=== PATIENT | male | born 1950 | race Caucasian/White ===

== ENCOUNTER 2017-01-27 11:23 | Emergency (ER) | payer OTHER, MEDICARE ==
[~2017-01-27] VITALS: Ht 182.9 cm; Wt 94.1 kg
[~2017-01-27 11:23] MED LIST: AMLO10TA3 PO; ASPI-628 PO; CHOL200020 PO; DOXY100C43 PO; ENAL10TA PO; GABA600T2 PO; HYDR25TA4 PO; METO25TA6 PO; OMEG300C3 PO; OMEP20TA86 PO
[2017-01-27 11:26] VITALS: BP 168/89; PULSE 71; RESP 18; O2SAT 97
--- NOTE | 2017-01-27 11:31 | ED.REPORT ---
HPI-Dyspnea / Wheezing Date of Service Jan 27, 2017 ED Provider: Patient is a 66-year-old man with congestive heart failure, obstructive sleep apnea, and previous PCI with stent placement in 1999. He presents to the emergency department with intermittent shortness of breath for the last 5 days. The worst episode occurred last night it was essentially constant for 5 hours. The 2 major episodes have occurred while he has been trying to sleep. He drinks griffin tea to help dilate his vessels and waits until it eventually goes away. He uses the CPAP nasal pillows and has difficulty with feeling like he is not getting enough air every time he puts his CPAP on. He is having episodes of shortness of breath independent of using his CPAP as well. Sometimes his symptoms improved with laying down. He sometimes but not always has shortness of breath with exertion. He states that he feels he has chest restriction which he relates to pain. His symptoms initially started on Wednesday evening, he had been helping his son move furniture in a [place] environment. She was coughing and had a runny nose at that time. She does not have a history of seasonal allergies. He is not experiencing any cough, fever, chills headache, vision changes, nausea, vomiting, abdominal pain, melena, hematochezia, edema, or focal weakness. Nursing Notes Stated Complaint: SOB Chief Complaint: Respiratory Complaints Allergies: Coded Allergies: No Known Drug Allergies (Verified Allergy, Unknown, 01/27/17) Scheduled Albuterol HFA (Proair HFA) 8.5 Gm Hfa.aer.ad 2 PUFFS INHALATION Q4H Amlodipine (Amlodipine) 10 Mg Tablet 10 MG PO DAILY Aspirin (Aspir 81) 81 Mg Tablet. 81 MG PO DAILY Cholecalciferol (Vitamin D3) (Vitamin D-3) 2,000 Unit Capsule 1,000 UNIT PO DAILY Doxycycline Monohyd (Doxycycline Monohyd) 100 Mg Capsule 100 MG PO BID Enalapril Maleate (Enalapril Maleate) 10 Mg Tablet 10 MG PO DAILY Gabapentin (Gabapentin) 600 Mg Tablet 600 MG PO BID Hydrochlorothiazide (Hydrochlorothiazide) 25 Mg Tablet 25 MG PO DAILY Metoprolol Tartrate (Metoprolol Tartrate) 25 Mg Tablet 25 MG PO BID [place]-3 Fatty Acids (Fish Oil) 300 Mg Capsule Unknown Dose PO DAILY Omeprazole (Omeprazole) 20 Mg Tablet. 20 MG PO DAILY Scheduled PRN Hydroxyzine Pamoate (Vistaril) 25 Mg Capsule 25 MG PO TID PRN PRN For Anxiety General Time Seen by MD: 11:31 Chief Complaint Shortness of breath Hx Obtained From: Patient Arrived By: Walk-in Onset Occurred: 5 days ago Risk Factors Well's Criteria for PE Well's PE Score: 0-2 pts (low risk 3.6%) Past Medical History Past Medical History Congestive heart failure Obstructive sleep apnea Gastroesophageal reflux disease Hypertension Hyperlipidemia Agent Col[place] exposure Past Surgical History PCI with stent placement in 2001-40% stenosis Dental extraction Left knee arthroscopy Tonsillectomy as a child Family History Possible history of heart disease on maternal side Smoking History Former Smoker Social History Alcohol Use: Denies alcohol use Drug Use: Denies drug use Other Social History: Lives alone Ambulatory Status Independent Review of Systems A comprehensive review of systems was conducted with the patient and found to be negative except as above in the History of Present Illness. Physical Exam Initial Vital Signs Vital Signs (First) Date Time Temp Pulse Resp B/P Pulse Ox O2 Delivery O2 Flow Rate FiO2 01/27/17 11:26 36.5 71 18 168/89 97 Room Air Initial VS: Reviewed, Vital signs abnormal (hypertensive) Head / Eyes: Atraumatic, Normocephalic, PERRL ENT: Mucous membranes moist, Conjunctiva normal, No scleral icterus Abdomen / GI: Soft, Non-tender, No guarding, No rebound, No distention Back: No CVA tenderness Lymphatic: No lymphadenopathy Extremities: Vascular intact, Neuro intact, No swelling, No tenderness Skin: Warm, Dry, No cyanosis Neurologic: Alert, Oriented, Nonfocal Psychiatric: Mood/affect normal, Behavior normal, Normal thought content General/Constitutional: Awake, Alert, No acute distress, Well developed, Well nourished Neck: Atraumatic, Supple, No swelling, Non-tender Respiratory / Chest: No respiratory distress, No wheezing, No chest wall deformity (small bruise inferior to left pec anteriorly) Rales / Rhonchi: Positive: Rales R base (mild) Cardiovascular: Heart rate NL, Regular rhythm, Heart sounds NL, Peripheral circulation NL Interpretation & Diagnostics Lab Results Interpretation Result Diagram: 01/27/17 1237 01/27/17 1237 Test 01/27/17 12:18 01/27/17 12:37 Urine Color Yellow (YELLOW) Urine Appearance Clear (CLEAR,HAZY) Urine pH 7.5 (5.0-8.0) Urine Specific [place] 1.010 (1.003-1.035) Urine Protein Negativemg/dL (NEG,TRACE) Urine Glucose (UA) Negativemg/dL (NEGATIVE) Urine Ketones Negativemg/dL (NEGATIVE) Urine Occult Blood Negative (NEGATIVE) Urine Nitrite Negative (NEGATIVE) Urine Bilirubin Negative (NEGATIVE) Urine Urobilinogen Normalmg/dL (NORMAL) Urine Leukocyte Esterase Negative (NEGATIVE) Urine RBC 0-2/hpf (0-2) Urine WBC 0-5/hpf (0-5) Urine Epithelial Cells Occasional/hpf (NONE-MOD) Urine Crystals None seen (NONE SEEN) Urine Bacteria None/hpf (NONE-FEW) Urine Hyaline Casts None/lpf (NONE) Urine Granular Casts None seen (NONE SEEN) Urine Waxy Casts None seen (NONE SEEN) Urine Red Blood Cell Casts None seen (NONE SEEN) Urine White Blood Cell Casts None seen (NONE SEEN) Urine Mucus None seen (None Seen) Urine Trichomonas None seen (NONE SEEN) Urine Yeast None (NONE SEEN) Urinalysis Comment None Urine Culture Reflexed Not indicated White Blood Count 7.2th/mm3 (3.8-10.1) Red Blood Count 5.52mil/mm3 (4.40-5.80) Hemoglobin 16.6g/dL (13.8-17.2) Hematocrit 46.4% (41.0-50.0) Mean Corpuscular Volume 84.1fL (81-100) Mean Corpuscular Hemoglobin 30.1pg (27.0-35.0) Mean Corpuscular Hemoglobin Concent 35.8% (32.0-37.0) Red Cell Distribution Width 12.5% (12.3-15.4) Platelet Count 126bil/L (150-400) Neutrophils (%) (Auto) 69.3% (40-74) Lymphocytes (%) (Auto) 18.6% (14-46) Monocytes (%) (Auto) 8.9% (4-12) Eosinophils (%) (Auto) 2.5% (0-5) Basophils (%) (Auto) 0.6% (0-3) Sodium Level 138mEq/L (134-144) Potassium Level 4.0mEq/L (3.5-5.2) Chloride Level 98mEq/L (97-108) Carbon Dioxide Level 26mmol/L (18-29) Blood Urea Nitrogen 15mg/dL (8-27) Creatinine 0.89mg/dL (0.76-1.27) Estimat Glomerular Filtration Rate 90mL/min (>59) Glucose Level 116mg/dL (60-99) Calcium Level 9.6mg/dL (8.5-10.1) Total Bilirubin 0.9mg/dL (0.0-1.2) Aspartate Amino Transf (AST/SGOT) 29U/L (0-50) Alanine Aminotransferase (ALT/SGPT) 24U/L (0-44) Alkaline Phosphatase 87U/L (25-160) Troponin T < 0.010ug/L (0.0-0.011) Pro-B-Type Natriuretic Peptide 40.86pg/mL (0-376) Total Protein 7.5g/dL (6.4-8.4) Albumin 4.7g/dL (3.4-5.0) Hold Pat Top Tube Received (Received) ECG Interpretation ECG Interpretation: Sinus rhythm at a rate of 63. No acute ST changes. No significant changes compared to ECG dated 10/21/2016 Time: 11:43 X-Ray Chest Interpretation Chest Xray Interpretation: IMPRESSION: No radiographic evidence of acute cardiopulmonary pathology. Dictated by: Ger Hutchinson M.D. on 01/27/2017 at 7:43 View: Portable Interpretation / Wet Read by: Interpret - Radiologist Re-Eval/Medical Decision Med Decision/Clinical Course The patient was seen and examined together with Dr. Velazquez on 01/27/17 and I have added additional information to the note above. Patient is a 66-year-old man with congestive heart failure, obstructive sleep apnea, and previous PCI with stent placement in 1999. He presents to the emergency department with intermittent shortness of breath for the last 5 days. Due to cardiac history patient was evaluated for acute coronary syndrome. His EKG, chest x-ray, and laboratory evaluation was all normal. He does not have an elevated troponin or BNP. Patient has a heart score of 4 based on age and risk factors, wells score for pulmonary embolism is 0. His case and diagnosis were discussed with him. He agrees that there is likely an anxiety component to his symptoms. He is assured to know that there does not appear to be any evidence of stress on his heart at this time. Case was discussed with [employer] who has already ordered a stress test for patient that should be scheduled within the next week and she will expedite follow-up. He was recently seen in the office and was doing well. He is on medical therapy for coronary artery disease and compliant with his medications. Patient was given prescription for Vistaril to treat anxiety, and albuterol inhaler as initial onset was associated with dust and there may be a reactive component to his symptoms. Laboratory findings, diagnosis, and treatment plan were discussed. He elected to go home with precautions to return to the emergency department and follow-up with his primary care provider. His questions were answered. He was discharged home in stable condition. Consultation : Referral / Consult Name: Nikki Nolan MD Requested Call at: 13:37 Call Returned at: 13:38 Gravel Roofer: Will see in office, Agrees with eval Counseled Regarding: Diagnosis, Lab results, Need for follow-up, When/why to return to ED Discharge & Departure Impression: Primary Impression: Shortness of breath at rest Additional Impression: Anxiety Disposition: Home Discharge Condition All VS Reviewed: Yes Condition: Stable Patient Instructions: Reactive Airways Disease (ED) Additional Instructions: Thank you for entrusting us with your care today. Your laboratory evaluation does not reveal electrolyte abnormality, signs of stress on her heart, or low blood counts. Your EKG is normal. There is no evidence of pneumonia or other heart or lung process on your chest x -ray. We have given you a breathing treatment to see if that improves airflow into your lungs. You will likely not need the inhaler long-term however it can be used to help open up your airways if you are feeling short of breath. It can make you jittery and raise her heart rate, these are normal side effects. I have given you a prescription for Vistaril which you may take as needed for anxiety. This can be mildly sedating and I recommend not driving with it until you know how your body reacts. If you have chest pain, worsening shortness of breath with exertion, or impending sense of doom please return to the emergency department. Follow-up with Dr. Nolan's office for your stress test within the next week. I recommend you follow up with your primary care provider for shortness of breath as well. It was a pleasure meeting you today. Referrals: [facility] (PCP) Nikki Nolan MD, Lin MD copies to: Nikki Nolan MD; [facility]; Ariadne Donald MD, Timothy S DO Jan 27, 2017 11:31 Leticia Velazquez DO Jan 27, 2017 12:22
[2017-01-27 11:58] VITALS: BP 153/78; PULSE 63; RESP 15; O2SAT 96
--- NOTE | 2017-01-27 11:59 | DRSVH ---
PROCEDURE: X-RAY CHEST ONE VIEW, PORTABLE ([id number]) INDICATIONS: SOB TECHNIQUE: One view of the chest was acquired. COMPARISON: None. FINDINGS: Surgical changes and devices: None. Lungs and pleura: No pleural effusions or pneumothorax. Lungs are clear. Mediastinum: Mediastinal contours appear normal. Heart size is normal. Bones and chest wall: No suspicious bony lesions. Overlying soft tissues appear unremarkable. IMPRESSION: No acute cardiopulmonary disease. Dictated by: Medina Doss M.D. on 01/27/2017 at 11:57 Approved by: Medina Doss M.D. on 01/27/2017 at 11:58
[2017-01-27 12:44] LABS: BASOPHILS % (AUTO) 0.6 % (0-3); EOSINOPHILS % (AUTO) 2.5 % (0-5); MONOCYTES % (AUTO) 8.9 % (4-12); Mean Corpuscular Hemoglobin 30.1 pg (27.0-35.0); Mean Corpuscular Volume 84.1 fL (81-100); NEUTROPHILS % (AUTO) 69.3 % (40-74); Platelet Count 126 bil/L (150-400)
[2017-01-27 12:47] LABS: APPEARANCE,URINE CLEAR (CLEAR,HAZY); COLOR,URINE YELLOW (YELLOW); PH,URINE 7.5 (5.0-8.0)
[2017-01-27 12:48] LABS: OCCULT BLOOD,URINE NEGATIVE (NEGATIVE); UROBILINOGEN,URINE NORMAL (NORMAL)
[2017-01-27 13:14] LABS: TROPONIN T < 0.010 ug/L (0.0-0.011)
--- NOTE | 2017-01-27 13:15 | DRSVH ---
PROCEDURE: X-RAY CHEST ONE VIEW ([id number]) INDICATIONS: SHORTNESS OF BREATH TECHNIQUE: One view of the chest was acquired. COMPARISON: [facility], CR, XR CHEST 1VW (PORTABLE), 01/27/2017, 11:40. FINDINGS: Surgical changes and devices: None. Lungs and pleura: No pleural effusions or pneumothorax. Lungs are clear. Mediastinum: Mediastinal contours appear normal. Heart size is normal. Aortic calcification. Bones and chest wall: No suspicious bony lesions. Overlying soft tissues appear unremarkable. Dege nerative spurring in the thoracic spine. IMPRESSION: No acute cardiopulmonary disease. Dictated by: Medina Doss M.D. on 01/27/2017 at 13:12 Approved by: Medina Doss M.D. on 01/27/2017 at 13:14
[2017-01-27] MEDS ORDERED: Ipratropium 0.02% 0.5 mg/2.5 mL Inhalation Solution NEB ONE (13:50)
[2017-01-27] MEDS ORDERED: HYDR25CA PO (13:55)
[2017-01-27] MEDS ORDERED: ALBU8.5H2 INHALATION (13:55)
[2017-01-27 15:34] VITALS: BP 134/76; PULSE 60; RESP 14; O2SAT 98
== END 2017-01-27 15:36 | disposition home or self-care (01) ==
LOC: SED 11:23
DX: R06.02 Shortness of breath (principal); F41.9 Anxiety disorder, unspecified; I11.0 Hypertensive heart disease with heart failure; I50.9 Heart failure, unspecified; E78.5 Hyperlipidemia, unspecified; Z87.891 Personal history of nicotine dependence; Z79.82 Long term (current) use of aspirin